=== PATIENT | male | born 1960 | race Caucasian/White ===

== ENCOUNTER 2020-01-05 19:28 | Emergency (ER) | payer SELFPAY ==
[~2020-01-05] VITALS: Ht 182.9 cm; Wt 108.9 kg
[2020-01-05 19:31] VITALS: Ht 182.9 cm; Wt 108.9 kg
[2020-01-05 21:24] VITALS: BP 134/82
== END 2020-01-05 21:24 | disposition home or self-care (01) ==
LOC: ED 19:28
DX: U07.1 COVID-19 (principal); J12.89 Other viral pneumonia; I10 Essential (primary) hypertension
CPT/HCPCS: U0003-CS

== ENCOUNTER 2020-01-10 14:50 | Emergency (ER) | payer SELFPAY ==
[~2020-01-10] VITALS: Ht 182.9 cm; Wt 108.9 kg
[2020-01-10 14:59] VITALS: BP 147/85; Ht 182.9 cm; Wt 108.9 kg
== END 2020-01-10 15:38 | disposition home or self-care (01) ==
LOC: ED 14:50
DX: U07.1 COVID-19 (principal); I10 Essential (primary) hypertension; E11.9 Type 2 diabetes mellitus without complications